=== PATIENT | female | born 1995 | race Caucasian/White ===

== ENCOUNTER 2018-08-18 00:33 | Inpatient (IN) | payer OTHER ==
[2018-08-18 01:37] LABS: Urine Appearance Cloudy; Urine Bilirubin Negative (Negative); Urine Blood Negative (Negative); Urine Color Yellow; Urine Glucose Negative (Negative); Urine Ketones Negative (Negative); Urine Nitrite Negative (Negative); Urine Protein Negative (Negative); Urine Specific Gravity 1.014 (1.010-1.030); Urine Urobilinogen Negative (Negative)
[2018-08-18] MEDS ORDERED: Buffered Lidocaine 1% SYRIN* 1 ML/SYRINGE INTRADERM ONE (06:12)
[2018-08-18] MEDS ORDERED: Lactated Ringers 1000 ML Bag* 1,000 ML IV ONE ×2 (06:12→11:44)
--- NOTE | 2018-08-18 06:24 | HP ---
General Information - Reason for Visit IUP at 40-5/7 in latent labor. Desires augmentation for postdates - General Information Maternal Age: 23 Grav: 2 Para: 1 SAB: 0 IEA: 0 Estimated Due Date: 08/13/18 Determined By: Early Ultrasound Gestational Age in Weeks/Days: 40-5/7 Maternal Blood Type and Rh: A Positive - Results this Serology/RPR Result: Non-Reactive Rubella Result: Immune HBsAg Result: Negative HIV Result: Negative GBS Culture Result: Negative Past Medical History Delivery History Comment: 10/2015 9lb 1oz female. Delivered at [place], [place] Pertinent Past Medical History: Non-Contributory Pertinent Past Surgical History: None Pertinent Family History: See Records Family History Comment: Mother: Drug abuse - Antepartal Records Antepartal Records: Reviewed, Complicated by: - Excessive weight gain : 66lbs Review of Systems Constitutional: Uncomfortable - with UCs and back ache CV Complaint: No Respiratory: Shortness of Breath: No Gastrointestinal: No Nausea/Vomiting, Normal Bowel Movement Genitourinary: No Dysuria, No Bleeding, No Leaking Fluid Musculoskeletal: Back Pain, Contractions Neurological: No Headache, No Visual Changes Movement: Normal Exam Allergies/Adverse Reactions: Allergies No Known Allergies Allergy (Verified 08/18/18 01:06) Vital Signs 08/18/18 01:07 Temperature 98.0 F Pulse Rate 109 Respiratory 16 Rate Blood Pressure 117/73 (mmHg) O2 Sat by Pulse 99 Oximetry Lab Values - Entire Visit: Laboratory Tests 08/18/18 01:23 Urine Color Yellow Urine Appearance Cloudy Urine pH 6.0 Ur Specific [place] 1.014 Urine Protein Negative Urine Ketones Negative Urine Blood Negative Urine Nitrate Negative Urine Bilirubin Negative Urine Urobilinogen Negative Ur Leukocyte Esterase Negative Urine Glucose Negative - Measurements Height: 5 ft 8 in Weight: 231 lb Weight in lbs: 220.726621 Body Mass Index (BMI): 35.1 Pre- Weight: 165 lb Weight Gained This : 55 lbs and 0 ozs - Exam Breast: Breast Exam Deferred CVA: No CVA Tenderness Extremities: No Edema Heart: Normal Rhythm/Heart Sounds HEENT: No Significant Findings Lungs: Clear Bilaterally Rectal: Rectal Exam Deferred Reflexes: DTR 2+ Thyroid: No Thyromegaly - Abdominal Exam Abdomen Exam: Non-Tender - Ultrasound/Biophysical Profile Ultrasound Status: Not Done Targeted Exam Findings Estimated Weight: EFW 9lbs by Alysa Cervical Exam: 2cm, 3cm Effacement: 50% Station: -2 Presenting Part: Vertex Membrane Status: Intact Sterile Speculum Exam: Not done Bleeding/Discharge: None EFM Findings - External Monitor Findings Baseline Heart Rate: 125 External Monitor Findings: Accelerations Present, No Pattern of Variable or Late Decelerations, Variability Moderate, Baseline Stable External Monitor Findings Comment: No evidence of metabolic acidemia Contractions: Irregular, Mild, Moderate, < 45 Seconds, 45-90 Seconds Contraction Frequency: q 4-6 min Assessment/Plan - Assessment A: IUP at 40-5/7 in latent labor with strong preference for augmentation No evidence of metabolic acidemia Ibarra score 7, favorable for augmentation P: Counseled for labor augmentation with IV pitocin. Pt strongly desires. Also requests epidural with increased discomfort. Plan to admit, place IV and proceed with labor augmentation. Report Alyssa Leon CNM who will assume care at 0800 - Obstetrical Risk Factors Obstetrical Risk Factors: Post-Dates - Plan Plan: Admit - Anticipate Vaginal Delivery - Date/Time of Admission Date of Admission: 08/18/18 Time of Admission: 06:25
[2018-08-18] MEDS ORDERED: Oxytocin in LR* 20 UNITS/1,000 ML BAG IVPB SCH (06:30)
[2018-08-18] MEDS ORDERED: Lactated Ringers 1000 ML Bag* 1,000 ML IV SCH ×2 (07:00→12:00)
[2018-08-18 07:12] LABS: ABS Basophils 0 10^3/ul (0-0.2); ABS Eosinophils 0.1 10^3/ul (0-0.6); ABS Lymphocytes 1.6 10^3/ul (1.0-4.8); ABS Monocytes 0.8 10^3/ul (0-0.8); ABS Neutrophils 8.1 10^3/ul (1.5-7.7); ABS Nucleated RBC 0 10^3/ul; Eosinophil % 0.9 %; Hematocrit 35 % (35-47); Hemoglobin 11.7 g/dl (12.0-16.0); Lymphocyte % 15.5 %; Mean Corpuscular HGB Conc 34 g/dl (31-36); Mean Corpuscular Hemoglobin 30 pg (27-31); Mean Corpuscular Volume 90 fL (80-97); Mean Platelet Volume 8.2 fL (7.4-10.4); Nucleated Red Blood Cells % 0; Platelet Count 207 10^3/ul (150-450); Red Cell Distribution Width 14 % (10.5-15); White Blood Count 10.6 10^3/ul (3.5-10.8)
--- NOTE | 2018-08-18 08:45 | PN ---
Progress Note - Progress Note Date of Service: 08/18/18 Note: S: Still comfortable though reports contractions getting stronger. Had breakfast. Feeling overall well. O: Pit @ 8 VE deferred UCs q 2-4 min FHT 145, Cat 1 vss, afebrile A: IUP @ 40+5 weeks gestation, in early labor with augmentation No evidence acidemia P: Continue pitocin per protocol. Labor epidural as desired.
[2018-08-18] MEDS ORDERED: OBEPIDURAL* 250 ML EPIDURAL ONE (10:49)
--- NOTE | 2018-08-18 10:53 | PN ---
Progress Note - Progress Note Date of Service: 08/18/18 Note: S: Patient reports contractions stronger, feeling more pain in her back. Would like epidural. O: VE deferred UCs q 2-4 min Pit @ 12 FHT 140, +accels, no decels, mod dewayne vss, afebrile A: IUP in early labor, augmented No evidence acidemia P: Reviewed epidural procedure with patient. Anesthesia paged, will defer VE until comfortable. May decrease pitocin. Anticipate SVB.
[2018-08-18] MEDS ORDERED: EPHEDrine (Pressors)* 50 MG/ML VIAL IV PUSH PRN ×2 (11:44)
[2018-08-18] MEDS ORDERED: Lactated Ringers 1000 ML Bag* 500 ML IV PRN ×2 (11:44)
[2018-08-18] MEDS ORDERED: Sodium Citrate/Citric Acid* 15 ML UDC PO PRN (11:44)
[2018-08-18] MEDS ORDERED: Phenylephrine IV* 40 MCG/ML 10 ML SYRINGE IV PUSH PRN (11:44)
[2018-08-18] MEDS ORDERED: Famotidine TAB* 20 MG PO PRN (11:44)
[2018-08-18] MEDS ORDERED: OBEPIDURAL* 250 ML EPIDURAL SCH (12:00)
[2018-08-18] MEDS ORDERED: Acetaminophen TAB* 325 MG PO ONE ×2 (12:31→18:37)
[2018-08-18] MEDS: Phenylephrine IV* 40 MCG/ML 10 ML SYRINGE IV PUSH PRN ×3 (13:51→20:56)
--- NOTE | 2018-08-18 14:57 | PN ---
Progress Note - Progress Note Date of Service: 08/18/18 Note: S: Patient has been very comfortable since receiving epidural. Has been changing position in bed side to side. Desires VE and to discuss amniotomy. O: VE /-1 Pit @ 14 UCs q 2-3 min FHT 130, Cat 1 No bloody show or discharge A: IUP in early labor, augmented No evidence acidemia P: PARQ discussion amniotomy, patient in agreement. Done with moderate clear, bloody fluid. Encouraged use of peanut ball and position changes. Anticipate SVB.
[2018-08-18] MEDS ORDERED: Acetaminophen TAB* 325 MG ONE (18:39)
--- NOTE | 2018-08-18 18:52 | PN ---
Progress Note - Progress Note Date of Service: 08/18/18 Note: S: Patient comfortable though feels that she can feel contractions "more than she should". Also reports a DUCKWORTH again. Has had multiple rounds of visitors over past few hours. O: VE 4cm/60/-1 Pit @ 24 FHT 135, Cat 1 UCs q 3-4 min VSS, afebrile A: IUP in early labor, augmented Membrane ruptured No cervical change No evidence acidemia P: Discussed stopping pitocin and resting for a period of time. Encouraged patient to sleep if possible and ask visitors to leave as desired. Will give Tylenol for DUCKWORTH. Plan to restart pitocin in 1-2 hours.
--- NOTE | 2018-08-18 21:14 | PN ---
Progress Note - Progress Note Date of Service: 08/18/18 Note: S: Patient rested some, fairly comfortable though feeling contractions somewhat. Using patient button to bolus PRN. O: VE deferred Pit restarted and at 8 FHT 130, +accels, no decels, mod dewayne UCs q 2-4 min VSS, afebrile A: IUP in early labor, augmented Ruptured membrane No evidence metabolic acidemia P: Continue pitocin titration, encourage position changes.
--- NOTE | 2018-08-19 01:28 | PN ---
Progress Note - Progress Note Date of Service: 08/19/18 Note: S: Patient reports feeling some contractions, more pain on right side. Anesthesiologist was at bedside for "air in line" on epidural pump, gave small bolus. O: VE 5cm/60%/vtx -1 UCs q 2-4 min Pit @ 18 FHT 125 VSS, afebrile A: IUP in early labor, pitocin augmentation, slow cervical progression No evidence acidemia Suspect asynclitic/posterior position P: Discussed placement of IUPC with patient, in agreement. To monitor and titrate pitocin. Encouraged return to use of peanut ball with side to side positioning to encourage head to optimal positioning. Consider pitocin break and prostaglandin administration if no change.
--- NOTE | 2018-08-19 03:42 | PN ---
Progress Note - Progress Note Date of Service: 08/19/18 Note: S: Patient reports increased vaginal pain, is breathing through contractions. She states the pain is "all low", not in back or abdomen. Pain too intense when using peanut ball. O: VE 8cm/80/vtx 0 Pit @ 26, MVUs approx 205 FHT 130 UCs q 2-4 min VSS, afebrile A: IUP in active labor, augmented with pitocin No evidence acidemia P: Continue monitoring per protocol. Patient encouraged to move side to side as tolerated, continue patient controlled bolus. Anticipate SVB.
[2018-08-19] MEDS ORDERED: Misoprostol TAB* 200 MCG PR ONE (05:28)
[2018-08-19] MEDS ORDERED: Witch Hazel PAD* JAR TOPICAL PRN (05:28)
[2018-08-19] MEDS ORDERED: Glycerin ADULT SUPP PR PRN (05:28)
[2018-08-19] MEDS ORDERED: Dibucaine 1% 28.35 GM TUBE PR PRN (05:28)
[2018-08-19] MEDS ORDERED: Oxytocin in LR* 20 UNITS/1,000 ML BAG IVPB SCH (06:00)
[2018-08-19] MEDS ORDERED: Lactated Ringers 1000 ML Bag* 1,000 ML IV SCH (06:00)
[2018-08-19] MEDS: Ibuprofen TAB* 600 MG PO PRN ×3 (07:05→21:24)
[2018-08-19] MEDS: Docusate CAP* 100 MG PO SCH ×3 (07:05→21:24)
--- NOTE | 2018-08-19 07:34 | PROCNOTE ---
[facility] OB: Delivery Note - Delivery A Date of : 08/19/18 Time of : 05:03 [place] Sex: Male Weight at : 8 lb 9 oz Score 1 Minute: 9 Score 5 Minutes: 9 Gestational Age in Weeks and Days at Delivery: 40 Weeks and 6 Days Delivery Method: Spontaneous Vaginal Labor: Spontaneous Did Patient attempt ?: N/A, No Previous Amniotic Fluid: Clear Estimated Blood Loss: 400 Anesthesia/Analgesia: CEI for Labor Delivered By: Karma Leon - Nursery Level of Nursery: Regular/Bedside - Perineum Perineal Injury: 1st Degree Perineal Repair: By Delivering Practioner - Events Delivery Events of Note: Pitocin During Labor, Post- Bleeding - Meds Given Delivery Events of Note Comment: 800 mcg Cytotec given post delivery - Additional Delivery Notes Additional Delivery Notes: Patient admitted in early labor. Slow progress, augmented with pitocin. Amniotomy performed without much progress. IUPC placed and pitocin titrated according to MVUs with good cervical change. Position changes lead to urge to push. LOL 20'55", pushed 35 min. Baby born OA to REBEL at 0503, shoulders following with maternal efforts. Baby to maternal abdomen with spontaneous cry, HR >110. Cord doubly clamped and cut by FOB once pulsations ceased. Placenta delivered with gentle cord traction @ 0508. Fundus initially firm to massage, trickle of bleeding noted. Firmed with pitocin and 800mcg Cytotec MD. Perineum with 3 stitch repair to small first degree laceration. Baby at breast to initiate . Baby name Alexy.
[2018-08-19] MEDS: Acetaminophen TAB* 325 MG PO PRN ×2 (08:24→17:06)
[2018-08-20] MEDS: Acetaminophen TAB* 325 MG PO PRN (01:08)
[2018-08-20] MEDS: Ibuprofen TAB* 600 MG PO PRN (06:37)
[2018-08-20 06:45] LABS: ABS Basophils 0 10^3/ul (0-0.2); ABS Eosinophils 0.1 10^3/ul (0-0.6); ABS Lymphocytes 1.7 10^3/ul (1.0-4.8); ABS Monocytes 0.6 10^3/ul (0-0.8); ABS Neutrophils 7.2 10^3/ul (1.5-7.7); ABS Nucleated RBC 0 10^3/ul; Eosinophil % 0.8 %; Hematocrit 30 % (35-47); Hemoglobin 10.2 g/dl (12.0-16.0); Lymphocyte % 17.5 %; Mean Corpuscular HGB Conc 34 g/dl (31-36); Mean Corpuscular Hemoglobin 31 pg (27-31); Mean Corpuscular Volume 90 fL (80-97); Mean Platelet Volume 8.1 fL (7.4-10.4); Nucleated Red Blood Cells % 0.1; Platelet Count 184 10^3/ul (150-450); Red Blood Count 3.34 10^6/ul (4.00-5.40); Red Cell Distribution Width 14 % (10.5-15); White Blood Count 9.5 10^3/ul (3.5-10.8)
[2018-08-20 08:32] VITALS: BP 101/66
[2018-08-20] MEDS: Docusate CAP* 100 MG PO SCH ×2 (08:46→13:42)
[2018-08-20] MEDS ORDERED: Ferrous Gluconate TAB* 324 MG TAB PO SCH (09:00)
== END 2018-08-20 13:55 | disposition home or self-care (01) | DRG 560 ==
LOC: MCHOBOUT 00:33 → MCHOB 06:19
PROVIDERS: ADMIT Midwife; ATTEND Midwife
PROC: 10E0XZZ Delivery of Products of Conception, External Approach (ICD-10-PCS; principal; 2018-08-18)
PROC: 10907ZC Drainage of Amniotic Fluid, Therapeutic from Products of Conception, Via Natural or Artificial Opening (ICD-10-PCS; 2018-08-18)
PROC: 4A1HXCZ Monitoring of Products of Conception, Cardiac Rate, External Approach (ICD-10-PCS; 2018-08-18)
PROC: 0HQ9XZZ Repair Perineum Skin, External Approach (ICD-10-PCS; 2018-08-18)
PROC: 10H07YZ Insertion of Other Device into Products of Conception, Via Natural or Artificial Opening (ICD-10-PCS; 2018-08-18)
DX: O48.0 Post-term pregnancy (principal); O72.1 Other immediate postpartum hemorrhage; Z37.0 Single live birth; O75.89 Other specified complications of labor and delivery; O70.0 First degree perineal laceration during delivery; R51 Headache; Z3A.40 40 weeks gestation of pregnancy
CPT/HCPCS: 36415; 81003; 85025; 86850; 86900; 86901; A9270-GY

== ENCOUNTER 2022-01-21 08:17 | Inpatient (IN) ==
[2022-01-21] MEDS ORDERED: Lactated Ringers 1000 ml BAG 1,000 ML IV ONE ×2 (08:33→18:06)
[2022-01-21] MEDS ORDERED: Buffered Lidocaine 1% SYRIN 1 ml INTRADERM ONE (08:33)
[2022-01-21] MEDS ORDERED: Lactated Ringers 1000 ml BAG 1,000 ML IV SCH ×4 (09:00→20:00)
[2022-01-21] MEDS ORDERED: Oxytocin in LR 20,000 MILLI.UNIT/1,000 ML BAG IV SCH ×2 (09:00→19:45)
[2022-01-21 09:23] LABS: ABS Eosinophils 0.1 10^3/ul (0-0.6); ABS Lymphocytes 1.5 10^3/ul (1.0-4.8); ABS Monocytes 0.5 10^3/ul (0-0.8); ABS Neutrophils 6.5 10^3/ul (1.5-7.7); Eosinophil % 0.6 %; Hematocrit 35 % (35-47); Hemoglobin 12.6 g/dL (12.0-16.0); Lymphocyte % 17.1 %; Mean Corpuscular HGB Conc 36 g/dL (31-36); Mean Corpuscular Hemoglobin 33 pg (27-31); Mean Corpuscular Volume 93 fL (80-97); Mean Platelet Volume 8.8 fL (7.4-10.4); Platelet Count 188 10^3/uL (150-450); Red Blood Count 3.79 10^6 /uL (3.70-4.87); Red Cell Distribution Width 13 % (10-15); White Blood Count 8.5 10^3/uL (3.5-10.8)
[2022-01-21 09:46] LABS: Urine Benzodiazepine Screen None Detected (None Detect); Urine Cannabinoids Screen None Detected (None Detect); Urine Opiates Screen None Detected (None Detect)
[2022-01-21] MEDS ORDERED: OBEPIDURAL (200 ML) 200 ML EPIDURAL ONE (17:17)
[2022-01-21] MEDS ORDERED: Phenylephrine 40 mcg/mL 10mL (400mcg) SYRINGE ONE (17:40)
[2022-01-21] MEDS ORDERED: Sodium Citrate/Citric Acid LIQ 15 ML UDC PO PRN (18:06)
[2022-01-21] MEDS ORDERED: Phenylephrine 40 mcg/mL 10mL (400mcg) SYRINGE IV PUSH PRN ×2 (18:06)
[2022-01-21] MEDS ORDERED: OBEPIDURAL (200 ML) 200 ML EPIDURAL SCH (19:00)
[2022-01-21 19:21] LABS: Urine Appearance Slightly Cloudy; Urine Bilirubin Negative (Negative); Urine Blood Trace (Intact) (Negative); Urine Color Yellow; Urine Glucose Negative (Negative); Urine Ketones Negative (Negative); Urine Nitrite Negative (Negative); Urine Protein Negative (Negative); Urine Urobilinogen 0.2 (Negative) (Negative); Urine pH 8.5 (5.0-9.0)
[2022-01-21] MEDS ORDERED: Dibucaine 1% OINT 28.35 GM TUBE PR PRN (19:39)
[2022-01-21] MEDS ORDERED: Witch Hazel PAD JAR TOPICAL PRN (19:39)
[2022-01-21 19:54] LABS: Urine Bacteria Absent (Absent); Urine Red Blood Cell 3+(>10/hpf) (Absent); Urine White Blood Cell Absent (Absent)
[2022-01-22 06:11] LABS: ABS Eosinophils 0.1 10^3/ul (0-0.6); ABS Lymphocytes 1.7 10^3/ul (1.0-4.8); ABS Monocytes 0.8 10^3/ul (0-0.8); ABS Neutrophils 11.6 10^3/ul (1.5-7.7); Eosinophil % 0.5 %; Hematocrit 37 % (35-47); Hemoglobin 12.9 g/dL (12.0-16.0); Lymphocyte % 11.8 %; Mean Corpuscular HGB Conc 35 g/dL (31-36); Mean Corpuscular Hemoglobin 33 pg (27-31); Mean Corpuscular Volume 93 fL (80-97); Mean Platelet Volume 8.7 fL (7.4-10.4); Platelet Count 197 10^3/uL (150-450); Red Blood Count 3.94 10^6 /uL (3.70-4.87); Red Cell Distribution Width 13 % (10-15); White Blood Count 14.2 10^3/uL (3.5-10.8)
[2022-01-22 19:44] VITALS: BP 103/64
== END 2022-01-22 20:47 | disposition home or self-care (01) | DRG 560 ==
LOC: MCHOBOUT 08:17 → MCHOB 08:42
PROVIDERS: ADMIT Midwife; ATTEND Midwife